=== PATIENT | female | born 1970 | race Caucasian/White ===

== ENCOUNTER 2016-06-04 10:20 | Observation (INO) ==
--- NOTE | 2016-06-04 10:29 | Emergency Department Note ---
Disposition Clinical Impression: Chest pain, Diabetes, Obesity, Hypertension, Smoker, Family history of coronary artery disease, Elevated lipase, Elevated d-dimer Disposition: Admitted As Inpatient General Adult HPI - General Stated complaint: chest pain, from Dr. Ashley Time Seen by Provider: 06/04/16 10:28 - History of Present Illness HPI Narrative: 45-year-old female reports to the emergency department from her primary care physician's office. The patient describes a history of progressive chest pain on exertion over the last week. She has a history of diabetes hypertension hypercholesterolemia she is a smoker and has a strong family history of coronary artery disease. She had a remote heart catheterization in which she describes a lesion which was not stented. The patient does not have a history of cancer or previous DVT or PE. There has been no coughing up blood. No abdominal pain vomiting or diarrhea. No trouble walking talking hearing seeing or speaking. No leg swelling or pain or fever. No acute back pain. The patient has not had a cough runny nose ear pain or sore throat. There is no history of a rash. There is no history of . She is status post hysterectomy. - Related Data Previous Rx's Medication Instructions Recorded Cyclobenzaprine [Flexeril] 10 mg PO HS #15 tablet 01/21/15 Hydrocodone/Acetaminophen [[place] 1 tab PO Q6H PRN #10 tab 01/21/15 5-325 Tablet] Ibuprofen [Motrin] 800 mg PO Q8HR #30 tablet 01/21/15 Allergies Allergy/AdvReac Type Severity Reaction Status Date / Time No Known Allergies Allergy Verified 01/21/15 01:42 All systems ED: reviewed and negative except as stated. Past Medical History - Past Medical History Medical history: Reports: coronary artery disease, diabetes, hypertension Surgical history: Reports: cholecystectomy, hysterectomy Psychiatric history: Reports: depression FRUIT SORTER history: Reports: no FRUIT SORTER history - Social History Smoking Status: Current every day smoker Smokeless Tobacco Status: No Alcohol use: Reports: none Drug use: Reports: none Physical Exam - General Limitations: no limitations - Head Head exam: atraumatic, normocephalic, normal inspection - Eye Eye exam: Present: normal appearance, PERRL, EOMI - ENT ENT exam: normal exam, normal oropharynx, mucous membranes moist - Neck Neck exam: Present: normal inspection, full ROM, trachea midline. Absent: tenderness - Chest Chest inspection: Present: symmetric chest wall rise. Absent: tenderness - Respiratory Respiratory exam: Present: normal lung sounds bilaterally. Absent: respiratory distress - Cardiovascular Cardiovascular exam: Present: regular rate, normal rhythm, normal heart sounds - Abdominal Exam Abdominal exam: Present: soft, Non-Tender. Absent: tenderness, distention, guarding, rebound, rigidity - Extremities Exam Extremities exam: Present: normal inspection, full ROM, normal capillary refill. Absent: tenderness, pedal edema, joint swelling, calf tenderness - Expanded Lower Extremity Exam Neurovascular/Tendon exam: Absent: motor deficit, sensory deficit, tendon deficit - Back Exam Back exam: Present: full ROM. Absent: tenderness, CVA tenderness (R), CVA tenderness (L), vertebral tenderness - Neurological Exam Neurological exam: Present: alert, oriented X3, CN II-XII intact. Absent: motor sensory deficit - Psychiatric Psychiatric exam: Present: normal affect, normal mood - Skin Skin exam: Present: warm, dry, intact, normal color. Absent: rash, cyanosis, diaphoresis, erythema, pallor, mottled Course Vital Signs Temperature 98.1 F 06/04/16 10:33 Pulse Rate 86 06/04/16 10:33 Respiratory Rate 18 06/04/16 10:33 Blood Pressure 171/104 06/04/16 10:33 O2 Sat by Pulse Oximetry 97 06/04/16 10:33 Temperature 98.1 F 06/04/16 10:33 Pulse Rate 86 06/04/16 10:33 Respiratory Rate 18 06/04/16 10:33 Blood Pressure 171/104 06/04/16 10:33 O2 Sat by Pulse Oximetry 97 06/04/16 10:33 Oxygen Delivery Oxygen Delivery Room Air Medical Decision Making - [facility] Narrative Medical decision making narrative: The patient has significant risk factors for acute coronary syndrome including age, obesity, smoking, hyperlipidemia, hypertension, diabetes mellitus, and a strong family history. The patient has been having recurrent chest pain with exertion. Her primary care physician strongly recommends admission to hospital. Based on her risk factors I think this is reasonable. I discussed the case with the hospitalist on-call. Patient was given aspirin emergency department and is currently stable chest pain-free. - Lab Data Lab results reviewed: Yes I reviewed the patient's lab results. Result diagrams: 06/04/16 10:32 01/20/17 10:39 Lab Results 06/04/16 06/04/16 06/04/16 Range/Units 10:32 10:32 10:32 WBC 10.1 (4.3-11.1) K/mcL RBC 4.87 (3.82-4.97) M/mcL Hgb 14.9 (11.5-15.4) g/dL Hct 42.8 (35.3-44.9) % MCV 87.9 (83.0-100.0) fL MCH 30.6 (28.0-33.3) pg MCHC 34.8 (31.6-35.5) g/dL RDW 12.7 (11.5-14.5) % Plt Count 210 (140-400) K/mcL MPV 9.4 (9.4-12.4) fL Immature Gran % 0.2 (0-4) % Seg Neutrophils % 51.2 % Lymphocytes % 39.5 % Monocytes % 6.1 % Eosinophils % 2.5 % Basophils % 0.5 % Neutrophils # 5.2 (1.6-8.9) K/mcL Lymphocytes # 4.0 (0.6-4.6) K/mcL Monocytes # 0.6 (0.0-1.3) K/mcL Eosinophils # 0.3 (0.0-0.6) K/mcL Basophils # 0.1 (0.0-0.2) K/mcL PT 10.7 (9.4-12.1) Seconds INR 1.0 APTT 29.6 (26.0-36.0) Seconds D-Dimer 621 H (0-500) ng/mLFEU Sodium (136-145) mEq/L Potassium (3.5-4.5) mEq/L Chloride (98-109) mEq/L Carbon Dioxide (19-29) mEq/L BUN (7-20) mg/dL Creatinine (0.57-1.11) mg/dL Est GFR ( Amer) (> 60) Est GFR (Non-Af Amer) (> 60) BUN/Creatinine Ratio (6-26) Glucose (70-99) mg/dL Calculated Osmolality (280-300) Calcium (8.6-10.8) mg/dL Total Bilirubin (0.2-1.2) mg/dL Direct Bilirubin (0.0-0.5) mg/dL Indirect Bilirubin (0.0-1.2) mg/dL AST (5-34) Units/L ALT (0-55) Units/L Alkaline Phosphatase (38-126) Units/L Troponin I 0.01 (0-0.03) ng/mL Serum Total Protein (6.0-8.3) g/dL Albumin (3.5-5.0) g/dL Globulin (2.4-3.5) g/dL Albumin/Globulin Ratio (1.1-2.2) Lipase (8-78) Units/L 06/04/16 Range/Units 10:39 WBC (4.3-11.1) K/mcL RBC (3.82-4.97) M/mcL Hgb (11.5-15.4) g/dL Hct (35.3-44.9) % MCV (83.0-100.0) fL MCH (28.0-33.3) pg MCHC (31.6-35.5) g/dL RDW (11.5-14.5) % Plt Count (140-400) K/mcL MPV (9.4-12.4) fL Immature Gran % (0-4) % Seg Neutrophils % % Lymphocytes % % Monocytes % % Eosinophils % % Basophils % % Neutrophils # (1.6-8.9) K/mcL Lymphocytes # (0.6-4.6) K/mcL Monocytes # (0.0-1.3) K/mcL Eosinophils # (0.0-0.6) K/mcL Basophils # (0.0-0.2) K/mcL PT (9.4-12.1) Seconds INR APTT (26.0-36.0) Seconds D-Dimer (0-500) ng/mLFEU Sodium 139 (136-145) mEq/L Potassium 3.6 (3.5-4.5) mEq/L Chloride 108 (98-109) mEq/L Carbon Dioxide 21 (19-29) mEq/L BUN 12 (7-20) mg/dL Creatinine 0.81 (0.57-1.11) mg/dL Est GFR ( Amer) > 60 (> 60) Est GFR (Non-Af Amer) > 60 (> 60) BUN/Creatinine Ratio 15 (6-26) Glucose 168 H (70-99) mg/dL Calculated Osmolality 292 (280-300) Calcium 9.7 (8.6-10.8) mg/dL Total Bilirubin 0.9 (0.2-1.2) mg/dL Direct Bilirubin 0.4 (0.0-0.5) mg/dL Indirect Bilirubin 0.5 (0.0-1.2) mg/dL AST 27 (5-34) Units/L ALT 35 (0-55) Units/L Alkaline Phosphatase 46 (38-126) Units/L Troponin I (0-0.03) ng/mL Serum Total Protein 7.5 (6.0-8.3) g/dL Albumin 3.9 (3.5-5.0) g/dL Globulin 3.6 H (2.4-3.5) g/dL Albumin/Globulin Ratio 1.1 (1.1-2.2) Lipase 84 H (8-78) Units/L - Radiology Data Radiology results reviewed: Yes I reviewed the patient's radiology results.
[2016-06-04] MEDS ORDERED: Aspirin 325 MG TABLET PO ONE (10:36)
[2016-06-04 10:54] LABS: Basophils # 0.1 K/mcL (0.0-0.2); Basophils % 0.5 %; Eosinophils # 0.3 K/mcL (0.0-0.6); Eosinophils % 2.5 %; Hematocrit 42.8 % (35.3-44.9); Hemoglobin 14.9 g/dL (11.5-15.4); Immature Granulocytes % 0.2 % (0-4); Lymphocytes % 39.5 %; Mean Corpuscular HGB Conc 34.8 g/dL (31.6-35.5); Mean Corpuscular Hemoglobin 30.6 pg (28.0-33.3); Mean Corpuscular Volume 87.9 fL (83.0-100.0); Mean Platelet Volume 9.4 fL (9.4-12.4); Monocytes # 0.6 K/mcL (0.0-1.3); Monocytes % 6.1 %; Neutrophils # 5.2 K/mcL (1.6-8.9); Platelet Count 210 K/mcL (140-400); Red Blood Count 4.87 M/mcL (3.82-4.97); Red Cell Distribution Width 12.7 % (11.5-14.5); Segmented Neutrophils % 51.2 %
[2016-06-04 11:00] LABS: Prothrombin Time 10.7 Seconds (9.4-12.1)
[2016-06-04 11:02] LABS: Activated Partial Thrombo Time 29.6 Seconds (26.0-36.0)
[2016-06-04 11:11] LABS: Alanine Aminotransferase 35 Units/L (0-55); Albumin 3.9 g/dL (3.5-5.0); Albumin/Globulin Ratio 1.1 (1.1-2.2); Alkaline Phosphatase 46 Units/L (38-126); Aspartate Amino Transferase 27 Units/L (5-34); BUN/Creatinine Ratio 15 (6-26); Bilirubin,Direct 0.4 mg/dL (0.0-0.5); Bilirubin,Indirect 0.5 mg/dL (0.0-1.2); Bilirubin,Total 0.9 mg/dL (0.2-1.2); Blood Urea Nitrogen 12 mg/dL (7-20); Calcium 9.7 mg/dL (8.6-10.8); Carbon Dioxide 21 mEq/L (19-29); Chloride 108 mEq/L (98-109); Globulin 3.6 g/dL (2.4-3.5); Glucose 168 mg/dL (70-99); Lipase 84 Units/L (8-78); Osmolality,Calculated 292 (280-300); Potassium 3.6 mEq/L (3.5-4.5); Sodium 139 mEq/L (136-145); Total Protein 7.5 g/dL (6.0-8.3); eGFR For African Americans > 60 (> 60); eGFR For Non-African Americans > 60 (> 60)
[2016-06-04 12:43] LABS: C-Reactive Protein 1 mg/L (Less than 5)
[2016-06-04] MEDS ORDERED: *HR* HYDROcodone/Acet 5/325 mg TABLET PO PRN (12:50)
[2016-06-04] MEDS ORDERED: Naloxone 0.4 MG/ML INJ IVP PRN (12:50)
[2016-06-04] MEDS ORDERED: Acetaminophen 325 MG TABLET PO PRN (12:50)
[2016-06-04] MEDS ORDERED: *HR* Morphine 2 MG/ML SYRINGE IVP PRN (12:50)
[2016-06-04] MEDS ORDERED: Ondansetron 4 MG/2 ML VIAL IVP PRN (12:50)
[2016-06-04] MEDS ORDERED: *HR* Dextrose 50 % in Water (Syg) 50 ML SYRINGE IVP PRN (13:23)
[2016-06-04] MEDS ORDERED: Dextrose Gel 15 GM PO PRN ×2 (13:23)
[2016-06-04] MEDS ORDERED: D5% in Water 1,000 ML IV PRN (13:23)
[2016-06-04] MEDS ORDERED: Nitroglycerin 0.4 MG TAB.SUBL SL PRN (13:29)
--- NOTE | 2016-06-04 13:31 | Internal Med History&Physical ---
Date of Encounter: 06/04/16 Time of Encounter: 13:29 Assessment and Plan (1) Stable angina Current visit: Yes Status: Acute History dates to few weeks prior to presentation No chest pain at time of review EKG Non-ischemic, history of cath years ago, found to be non-obstructive, initial troponin negative Obtain ECHO Obtain stress test No need to consult cardiology for now Aggressive lifestyle modifications encouraged Smoking cessation encouraged Continue Lisinopril, change statin to lipitor, Start metoprolol after stress test SL NTG prn (2) Diabetes Current visit: Yes Status: Chronic Per papers from PCP, A1C was 8.8 Subcutaneous insuin in-patient] DM diet Qualifiers: Diabetes mellitus type: type 2 Diabetes mellitus complication status: with unspecified complications Diabetes mellitus termite exterminator helper insulin use: without longterm use Qualified Code(s): E11.8 - Type 2 diabetes mellitus with unspecified complications (3) Hypertension Current visit: Yes Status: Chronic Qualifiers: Hypertension type: essential hypertension Qualified Code(s): I10 - Essential (primary) hypertension (4) Obesity Current visit: Yes Status: Chronic Qualifiers: Obesity type: unspecified obesity type Obesity severity: unspecified obesity severity Qualified Code(s): E66.9 - Obesity, unspecified (5) Smoker Current visit: Yes Status: Chronic 3 minutes smoking cessation counselling done Accepts NRT meanwhile Internal Medicine - H&P: HPI Chief complaint: Chest pain Admitted From: Home Plans for Post Hospital Care: Home History of present illness: Ms. Chaudhari is a 45 year old female referred from PCP office She has a week long history of left sided chest pain that is exertional, radiates to the left arm and jaw, associated with shortness of breath and dizziness and resolved with rest. When she does get the pain, its ~8-9/10 but completely resolves with resting. She denies chest pain at time of review. No cough, recent travel , fever or chills. No lower extremity swelling and or calf pain She denies abdominal or symptoms No neurological symptoms Patient reports positive family history of heart disease, she smokes 1PPD and is mostly sedentary. She also has a history of depression. Past Med Surg Social Fam HX - Past Medical History Medical history: coronary artery disease, diabetes, hypertension Psychiatric history: depression - Past Surgical History Surgical History: cholecystectomy, hysterectomy - Social History Smoking Status: Current every day smoker Smokeless Tobacco Status: No Alcohol use: none Drug use: none - Family History Father Hx Family Cardiac Disorders: Yes (Cardiac disease) Sister Hx Family Cardiac Disorders: Yes (Cardiac disease) Internal Medicine - H&P: Meds Acetaminophen [Tylenol] 1,000 mg PO Q6HR PRN 06/04/16 [History] Aspirin 81 mg PO DAILY 06/04/16 [History] Ergocalciferol (VITAMIN D2) [Vitamin D2] 50,000 unit PO QWEEK MDD tuesday [History] Fenofibrate [Lofibra] 160 mg PO DAILY 06/04/16 [History] GlipiZIDE [Glucotrol] 5 mg PO DAILY 06/04/16 [History] Lisinopril [Zestril] 5 mg PO DAILY 06/04/16 [History] Lovastatin [Mevacor] 20 mg PO HS 06/04/16 [History] Meloxicam 15 mg PO DAILY 06/04/16 [History] Metformin HCl [Glucophage] 1,000 mg PO BID 06/04/16 [History] Allergies No Known Allergies Allergy (Verified 01/21/15 01:42) All Systems PM: A 10-system review of systems was performed and is negative for pertinent findings except as documented above in the HPI. - Constitutional Constitutional: no chills, no fever(s), no night sweats - EENT Eyes: no change in vision, no discharge, no pain, no photophobia Ears: no ear discharge, no ear pain, no tinnitus Nose, mouth and throat: no dysphagia, no nasal discharge, no neck pain, no sore throat - Cardiovascular Cardiovascular ROS IM: as per HPI - Respiratory Respiratory: as per HPI - Gastrointestinal Gastrointestinal: no abdominal pain, no diarrhea, no hematemesis, no hematochezia, no melena, no nausea, no vomiting - Genitourinary Genitourinary: no change in urinary stream, no dysuria, no flank pain, no hematuria - Musculoskeletal Musculoskeletal ROS IM: no numbness, no tingling - Integumentary Integumentary IM: no rash, no unusual bruising - Neurological Neurological ROS: no confusion, no convulsions, no focal weakness, no numbness, no tingling, no tremor(s) - Hematologic/Lymphatic Hematologic/Lymphatic: no easy bruising - Constitutional Vitals: Temp Pulse Resp BP Pulse Ox 98.0 F 80 20 176/106 97 06/04/16 12:57 06/04/16 12:57 06/04/16 12:57 06/04/16 12:57 06/04/16 12:57 General appearance: Present: A&O X 3, no acute distress, obese - Head Head exam: Present: atraumatic, normocephalic - Eye Eye exam: Present: PERRL, conjuntiva pink, sclera anicteric Pupils: Present: PERRL - Neck Neck exam general surgery: Present: supple, trachea midline. Absent: lymphadenopathy - Respiratory Respiratory exam: Present: CTAB. Absent: accessory muscle use, rales, rhonchi, wheezes - Cardiovascular Cardiovascular exam: Present: RRR, +S1, +S2. Absent: diastolic murmur, gallop, rubs, systolic murmur - GI/Abdominal GI/Abdominal exam: Present: normal bowel sounds, soft, no peritoneal signs. Absent: distended, tenderness - Extremities Exam Extremities exam: Present: warm, radial pulses palpable and symetrical. Absent : calf tenderness, cyanotic, pedal edema - Neurological Exam Neurological exam: Present: CN II-XII intact, oriented X3, no focal deficits. Absent: pronater drift, facial droop, speech deficit - Skin Skin exam: Present: dry, intact Internal Med - H&P Results - Labs CBC & Chem 7: 06/04/16 10:32 06/04/16 10:39 - EKG Data -: EKG Interpreted by Myself EKG shows normal: sinus rhythm, ST-T waves (NO ST elevation or depression) Rate: normal - EKG Data Prior EKG available for review: yes When compared to previous EKG: there is no significant change Interpretation IM: normal EKG
[2016-06-04] MEDS: Nicotine 21 MG PATCH.TD24 TD SCH (13:54)
[2016-06-04 14:28] LABS: Chol/HDL Ratio 3.9 (0-4.9)
--- NOTE | 2016-06-04 16:05 | Electrocardiograph Report ---
[facility] Test Date: 2016-06-04 Pat Name: Radha Chaudhari Department: 104 Room: 3B16 Gender: F Tab Cutter: LILLI : 1970 Requested By: Florin Foster Order Number: [id number] Reading MD: Dahlia Jay Measurements Intervals [place] Rate: 89 P: 42 OK: 130 QRS: 42 QRSD: 106 T: 49 QT: 342 QTc: 389 Interpretive Statements SINUS RHYTHM LEFT VENTRICULAR HYPERTROPHY AND ST-T CHANGE Electronically Signed On 06-04-16 16:03:53 EST by Dahlia Jay
[2016-06-04] MEDS: Insulin LISPRO 300 UNITS/3 ML VIAL SQ SCH (17:34)
[2016-06-04] MEDS ORDERED: Insulin LISPRO 300 UNITS/3 ML VIAL SQ SCH (21:00)
[2016-06-05 03:37] LABS: Basophils % 0.5 %; Eosinophils # 0.2 K/mcL (0.0-0.6); Eosinophils % 2.5 %; Hematocrit 41.1 % (35.3-44.9); Hemoglobin 13.9 g/dL (11.5-15.4); Immature Granulocytes % 0.3 % (0-4); Lymphocytes % 38.3 %; Mean Corpuscular HGB Conc 33.8 g/dL (31.6-35.5); Mean Corpuscular Hemoglobin 30.8 pg (28.0-33.3); Mean Corpuscular Volume 90.9 fL (83.0-100.0); Mean Platelet Volume 9.5 fL (9.4-12.4); Monocytes # 0.5 K/mcL (0.0-1.3); Monocytes % 6.2 %; Neutrophils # 4.1 K/mcL (1.6-8.9); Platelet Count 205 K/mcL (140-400); Red Blood Count 4.52 M/mcL (3.82-4.97); Red Cell Distribution Width 12.8 % (11.5-14.5); Segmented Neutrophils % 52.2 %
[2016-06-05 03:51] LABS: BUN/Creatinine Ratio 16 (6-26); Blood Urea Nitrogen 14 mg/dL (7-20); Calcium 9.5 mg/dL (8.6-10.8); Carbon Dioxide 21 mEq/L (19-29); Chloride 108 mEq/L (98-109); Glucose 280 mg/dL (70-99); Osmolality,Calculated 301 (280-300); Potassium 4.1 mEq/L (3.5-4.5); Sodium 140 mEq/L (136-145); eGFR For African Americans > 60 (> 60); eGFR For Non-African Americans > 60 (> 60)
--- NOTE | 2016-06-05 07:51 | ECHO - Doppler Report ---
Echocardiogram Name: Radha Chaudhari Date of Study: 06/04/2016 Date: 1970 Ht: 67.0 in Medical Record#: [id number] Age: 45 Wt: 204.0 lb Gender: Female BSA: 2.04 Order #: [id number] Location: [facility] Room #: 3B16 Reading Physician: Bao Meza DO, FACChandler, ASA OCHOA [facility]: [facility] Ordering Physician: Villa Arnold MD Primary Physician: Romel Ashley MD Indications: Stable angina Impressions: LVEF 50-55%. Normal LV chamber size and function. Mild concentric left ventricular hypertrophy. Mild left ventricular diastolic dysfunction. Normal right ventricular structure and function. Unable to estimate RVSP due to lack of TR jet. No significant valvular dysfunction. Left Ventricular Wall Motion: Rest Echo Findings All wall segments showed normal motion. Findings: Study Quality * Technically adequate exam. ECG Findings * Normal sinus rhythm. Left Ventricle * LVEF 50-55%. * Normal LV chamber size and function. * Mild concentric left ventricular hypertrophy. * Mild left ventricular diastolic dysfunction. Right Ventricle * Normal right ventricular structure and function. Left Atrium * Mildly dilated left atrium. Right Atrium * Normal right atrial size. Interatrial Septum * Interatrial septum not well evaluated. Aortic Valve * Trileaflet aortic valve. * Mildly sclerotic aortic valve leaflets. * Trace aortic regurgitation. * No aortic stenosis. Mitral Valve * Normal mitral valve structure and function. * No mitral stenosis. * Trace mitral regurgitation. Tricuspid Valve * Normal tricuspid valve structure and function. * No tricuspid regurgitation. * Unable to estimate RVSP due to lack of TR jet. Pulmonic Valve * Pulmonic valve not well visualized. * No pulmonic regurgitation. Aorta * Normally sized aortic root. Pericardium * The pericardium appears normal. IVC * The IVC is not well evaluated. Pulmonary Artery * Pulmonary artery not well visualized. History Hypertension Diabetes Hypercholesteremia History of Smoking Years 29 Packs 1 Family History of CAD Measurements: BP: 176/ 106 2D Normal Values RVIDd: 3.40 cm <2.7 cm IVSd: 1.20 cm 0.6 - 1.0 cm LVIDd: 5.50 cm 3.7 - 5.6 cm LVPWd: 1.20 cm 0.6 - 1.1 cm LVIDs: 3.60 cm 1.5 - 3.6 cm AO: 2.90 cm < 4.0 cm LA: 3.80 cm 2.0 - 4.0cm %FS: 34.50 cm >25 % LA volume: 44 Mitral Valve Peak E:.56 m/sec Peak A:.67 m/sec E/A Ratio:0.8 Peak E' Lat Sudeep:9.85 cm/s Peak E' Med Sudeep:5.07 cm/s E/E' Lat Ratio:5.7 E/E' Med Ratio:11.1 Updated by Bao Meza DO, EFREM, DON, FASLIZ on 06/05/2016 7:46:29 AM electronically signed on 06/05/2016 7:47:24 AM with status of Final Wall Motion Hall: 1=Normal, 2=Hypokinesis, 3=Akinesis, 4=Dyskinesis, 5=Aneurysmal, 6=Hyperkinetic, X=Not Visualized (Blank)=Missing
[2016-06-05] MEDS ORDERED: Regadenoson 0.4 MG/5 ML SYRINGE IVP ONE (08:56)
[2016-06-05] MEDS ORDERED: Aspirin 81 MG TAB.CHEW PO SCH (09:00)
[2016-06-05] MEDS ORDERED: Fenofibrate 54 MG TABLET PO SCH (09:00)
[2016-06-05] MEDS: Insulin LISPRO 300 UNITS/3 ML VIAL SQ SCH ×2 (10:25→12:32)
[2016-06-05] MEDS: Nicotine 21 MG PATCH.TD24 TD SCH (11:07)
--- NOTE | 2016-06-05 12:17 | Nuclear Medicine Stress Report ---
Regadenoson Nuclear Stress Name: ABELINO SEGAL Date of Study: 06/05/2016 Date: 1970 Ht: 66.0 in Medical Record#: [id number] Age: 45 Wt: 202.0 lb Gender: Female Order #: [id number] Location: [facility] Room: [facility] Supervising Provider: Manju Harris CNP Reading Physician: Bao Meza DO, FACChandler, ASA OCHOA Ordering Physician: Wade Buckner MD Primary Care Physician: Romel Ashley MD Stress Technologist: Zachariah Melendez SOLE LAYER HAND, CCT Tumbling And Rolling Supervisor: Jas Werner Indications: Chest Pain Impression: Pharmacologic stress ECG is negative for ischemia at level of heart rate achieved. Gated EF > 70%. Small size, mild intensity, fixed mid anteroseptal defect consistent with artifact. Perfusion imaging was negative for ischemia or infarct. History: Hypertension Diabetes Hypercholesteremia History of Smoking Stress Test Summary: Stress Test Type: Pharmacologic Regadenoson 0.4mg/5ml given IV Baseline Information: Initial Heart Rate: 73 Blood Pressure: 146/96 Stress Information: Stress Time: 4 min 00 sec Test Terminated Due to (primary): Completed Protocol Maximum Blood Pressure: 140/82 Maximum Heart Rate: 103 Percent Maximum Heart Rate Achieved: 59 Double Product: 14,420 METS Reached: 1 Symptoms: Flushing Nuclear Summary: SPECT myocardial perfusion imaging using Tc99m Sestamibi given intravenously was performed at rest and following cardiac stress testing. The resting images were obtained following initial dose of 11.0 mCi. Following stress an additional dose of 27.1 mCi was given at peak exercise or 30 seconds post regadenoson infusion. Medication Given: Time Medication Dose Units Route Findings: Stress Note * Resting ECG demonstrated normal sinus rhythm. * No baseline arrhythmias were noted. * Pharmacologic stress ECG is negative for ischemia at level of heart rate achieved. * No chest pain or arrhythmias during stress. * Normal hemodynamic responses to pharmacologic stress. Study Quality * Study quality is average. Gated EF > 70% * Gated EF > 70%. Left Ventricle * The left ventricle is not dilated. LVEDV = 113 mL. * Normal wall motion. Anterior Perfusion Rest * The mid anteroseptal segment shows a mild reduction in perfusion. Anterior Perfusion Stress * The mid anteroseptal segment shows a mild reduction in perfusion. TID * No evidence of transient ischemic dilatation. TID ratio = 0.78. Lung Uptake * There is no evidence of increase lung uptake. Updated by Bao Meza DO, EFREM, DON, ASA on 06/05/2016 12:11:57 PM electronically signed on 06/05/2016 12:13:11 PM with status of Final
--- NOTE | 2016-06-05 12:29 | Discharge Summary ---
Date of Encounter: 06/05/16 Time of Encounter: 08:00 - Discharge Diagnosis (1) Chest pain Priority: Primary Status: Acute Comments: Precordial chest pain Qualifiers: Chest pain type: precordial pain Qualified Code(s): R07.2 - Precordial pain (2) Diabetes Priority: Secondary Status: Chronic Qualifiers: Diabetes mellitus type: type 2 Diabetes mellitus complication status: with unspecified complications Diabetes mellitus alf insulin use: without long term care social worker use Qualified Code(s): E11.8 - Type 2 diabetes mellitus with unspecified complications (3) Hypertension Priority: Secondary Status: Chronic Qualifiers: Hypertension type: essential hypertension Qualified Code(s): I10 - Essential (primary) hypertension (4) Obesity Priority: Secondary Status: Chronic Qualifiers: Obesity type: unspecified obesity type Obesity severity: unspecified obesity severity Qualified Code(s): E66.9 - Obesity, unspecified (5) Smoker Priority: Secondary Status: Chronic - Discharge Medications Prescriptions: Lisinopril [Zestril] 10 mg PO DAILY #30 tablet Metoprolol [Lopressor] 25 mg PO BID #60 tablet Nicotine Patch [Nicoderm] 21 mg TD DAILY #30 patch.td24 Omeprazole [PriLOSEC] 20 mg PO DAILY #30 cap Home Medications: Acetaminophen [Tylenol] 1,000 mg PO Q6HR PRN 06/04/16 [History] Aspirin 81 mg PO DAILY 06/04/16 [History] Ergocalciferol (VITAMIN D2) [Vitamin D2] 50,000 unit PO QWEEK MDD tuesday [History] Fenofibrate [Lofibra] 160 mg PO DAILY 06/04/16 [History] GlipiZIDE [Glucotrol] 5 mg PO DAILY 06/04/16 [History] Lovastatin [Mevacor] 20 mg PO HS 06/04/16 [History] Meloxicam 15 mg PO DAILY 06/04/16 [History] Metformin HCl [Glucophage] 1,000 mg PO BID 06/04/16 [History] Lisinopril [Zestril] 10 mg PO DAILY #30 tablet 06/05/16 [Rx] Metoprolol [Lopressor] 25 mg PO BID #60 tablet 06/05/16 [Rx] Nicotine Patch [Nicoderm] 21 mg TD DAILY #30 patch.td24 06/05/16 [Rx] Omeprazole [PriLOSEC] 20 mg PO DAILY #30 cap 06/05/16 [Rx] Allergies/Adverse Reactions: Allergies No Known Allergies Allergy (Verified 01/21/15 01:42) Procedures/tests Complete & Pending: Procedures Performed prior 72 hours Category Date Time Status NM misha perf SPECT multi [NM] Routine Exams 06/04/16 13:28 Taken EV echocardiogram Stat Y 06/04/16 12:57 Completed SP pharm nuclear stress Routine Y 06/05/16 Completed Date of admission: 06/04/16 12:22 Primary care physician: Romel Ashley MD Consults: 06/04/16 13:47 Consult to Feeder Driver [CONS] Routine Reason for SW Consult: No active thoughts of SI/HI, but states history of thoughts with no treatment; out pt resources needed Discharging clinician: Wade Buckner Anticipated date of discharge: 06/05/16 - Patient Status Disposition: Home, Self-Care Condition: Good Functional capacity at discharge: independent ambulation Overall status at discharge: patient is progressing back to baseline - Discharge Instructions Instructions: How to Stop Smoking (DC), Cigarette Smoking and Your Health, Tactical Deception Plans Officer (GEN) Follow Up With: Romel Ashley MD [Primary Care Provider] - (In 1-2 weeks) Forms: ED Satisfaction Letter - Diet and Activity Activity: increase activity as tolerated Diet: diabetic diet, low fat, low cholesterol, low salt diet Hospital course: Ms. Chaudhari is a 45 year old female with history of essential hypertension, diabetes mellitus type 2 who had a negative cardiac catheterization a few years back presented to the ER with complaints of chest pain. She was observed in the hospital and her troponins were trended. They were negative. She then underwent a cardiac stress test today which does not show any signs suggestive of ischemia. The patient's chest pain has improved although she has some numbness on her chest that is intermittently present. Given that she does not have any signs suggestive of cardiac ischemia induced chest pain, she is stable to be discharged home. Other causes of her chest pain could be related to GI or musculoskeletal chest pain. Will started on omeprazole. Patient also has a history of cigarette smoking. She has been counseled and is willing to quit. She will be prescribed nicotine patches. She will follow up further with her primary care provider for her chronic medical conditions. Her blood pressure has been elevated during her stay here. Her lisinopril dosage has been increased to 10 mg daily and she has also been placed on metoprolol 25 mg twice daily. - Time Spent with Patient Total time spent providing and/or coordinating discharge services: Less than 30 minutes (25 min) - Constitutional Vitals: Temp Pulse Resp BP Pulse Ox 98.0 F 73 16 163/108 96 06/05/16 11:46 06/05/16 11:46 06/05/16 11:46 06/05/16 11:46 06/05/16 11:46 General appearance: Present: A&O X 3, no acute distress, obese - Respiratory Respiratory exam: Present: CTAB. Absent: accessory muscle use, rales, rhonchi, wheezes - Cardiovascular Cardiovascular exam: Present: RRR, +S1, +S2. Absent: diastolic murmur, gallop, rubs, systolic murmur - GI/Abdominal GI/Abdominal exam: Present: normal bowel sounds, soft, no peritoneal signs. Absent: distended, tenderness - Extremities Exam Extremities exam: Present: warm, radial pulses palpable and symetrical. Absent : calf tenderness, cyanotic, pedal edema - Neurological Exam Neurological exam: Present: CN II-XII intact, oriented X3, no focal deficits. Absent: facial droop, speech deficit - Skin Skin exam: Present: dry, intact - Attending Attestation This document has been at least partially created by [employer] recognition technology by Dr. Buckner. Errors in grammar, wording or other phrases may exist. If errors are found after the documentation is signed, they will be addressed individually in the addendum section of this document when appropriate.
[2016-06-05 13:20] VITALS: BP 150/92
== END 2016-06-05 13:15 | disposition home or self-care (01) ==
LOC: 3BNU 10:20 → EMEROO 10:20 → SUATTDRO 12:22 → 3BNU 12:47
PROVIDERS: ADMIT Internal Medicine; ATTEND Internal Medicine